=== PATIENT | female | born 1970 | race Caucasian/White ===

== ENCOUNTER 2018-01-15 19:45 | Emergency (ER) | payer OTHER ==
[~2018-01-15] VITALS: Ht 167.6 cm; Wt 68.2 kg
[2018-01-15] MEDS ORDERED: NORVASC5 MG PO (19:55)
[2018-01-15 21:50] VITALS: BP 153/100
== END 2018-01-15 21:51 | disposition home or self-care (01) ==
LOC: EME → EDBD 19:45 → TRA 19:45 → EME 19:45 → TRA 21:51
DX: S80.02XA Contusion of left knee, initial encounter (principal); S80.212A Abrasion, left knee, initial encounter; V43.52XA Car driver injured in collision with other type car in traffic accident, initial encounter; Y92.410 Unspecified street and highway as the place of occurrence of the external cause; I10 Essential (primary) hypertension
CPT/HCPCS: 73564; 99281; 99284